=== PATIENT | female | born 1985 ===

== ENCOUNTER 2016-09-02 18:16 | Emergency (ER) | payer SELFPAY ==
[2016-09-02 18:22] VITALS: BP 114/61; PULSE 63; RESP 18; TEMP 98.2; O2SAT 100
[2016-09-02] MEDS ORDERED: Lactated Ringer's 1,000 ML IV STA (18:41)
[2016-09-02] MEDS ORDERED: Dextrose 5%/Lactated Ringer's 1,000 ML IV SCH (18:45)
[2016-09-02 19:00] LABS: BASO % 0.5 % (0.0-2.0); EOS # 0.1 K/uL (0.0-0.7); EOS % 0.6 % (0.0-4.0); HEMOGLOBIN 12.1 g/dL (12.0-16.0); LYMPH # 2.4 K/uL (1.0-4.3); LYMPH % 25.5 % (20.0-40.0); MEAN CELL VOLUME 81.2 fl (81.0-99.0); MEAN CORPUSCULAR HEMOGLOBIN 26.3 pg (27.0-31.0); MEAN CORPUSCULAR HGB CONC 32.4 g/dL (33.0-37.0); MEAN PLATELET VOLUME 8.4 fl (7.2-11.7); MONO # 0.5 K/uL (0.0-0.8); MONO % 5.3 % (0.0-10.0); NEUT # 6.3 K/uL (1.8-7.0); NEUT % 68.1 % (50.0-75.0); NRBC % 0.1 % (0.0-0.0); RBC 4.6 Mil/uL (3.80-5.20); RED CELL DISTRIBUTION WIDTH 17.7 % (11.5-14.5); WHITE BLOOD COUNT 9.3 K/uL (4.8-10.8)
[2016-09-02 19:21] LABS: ALB/GLOB RATIO 1.1 (1.0-2.1); ALBUMIN 3.9 g/dL (3.5-5.0); ALT/SGPT 28 U/L (9-52); AST/SGOT 21 U/L (14-36); BLOOD UREA NITROGEN 9 mg/dl (7-17); CALCIUM 8.7 mg/dL (8.4-10.2); GFR AFRICAN-AMERICAN > 60; GFR NON-AFRICAN AMERICAN > 60; LIPASE 26 U/L (23-300); MAGNESIUM 1.9 MG/DL (1.6-2.3)
--- NOTE | 2016-09-02 19:58 | ED PDOC ---
HPI: Abdomen Time Seen by Provider: 09/02/16 18:25 Chief Complaint (Nursing): GI Problem Chief Complaint (Provider): Intractible vomiting History Per: Patient History/Exam Limitations: no limitations Onset/Duration Of Symptoms: Days Outside of [place] travel?: No Current Symptoms Are (Timing): Still Present Associated Symptoms: Nausea, Vomiting Additional Complaint(s): The pt is a 30yo female, at 11 weeks, reports to the ED for evaluation of intractible vomiting present for the past day. Pt reports shes had multiple episodes of vomiting every day since finding out she was . States she took zofran today with no relief. Pt has visited medical center last week with similar complaints, was treated and released. She reports some mild crampy abdominal pain, intermittent and associated with vaginal spotting for 2x weeks. She reports following up with her OBGYN for this issue. She reports some constipation but denies any black or bloody stools, hematemesis. Pt also reports some light headedness, fatigue. Offers no additional medical complaints. PCP: Dr. Cardona Abnormal Vaginal Bleeding: No : 4 Para: 3 Past Medical History Reviewed: Historical Data, Nursing Documentation, Vital Signs Vital Signs: Last Vital Signs Temp 98.2 F 09/02/16 18:19 Pulse 63 09/02/16 18:19 Resp 18 09/02/16 18:19 BP 114/61 09/02/16 18:19 Pulse Ox 100 09/02/16 20:07 - Medical History PMH: No Chronic Diseases - Surgical History Surgical History: (3) - Family History Family History: States: Other Other Family History: mother w/ liver and kidney disease - Social History Current smoker - smoking cessation education provided: No Alcohol: None Drugs: Denies - Home Medications Home Medications: Ambulatory Orders Medication Instructions Recorded Famotidine [Pepcid] 40 mg PO DAILY PRN #30 tab 09/02/16 Metoclopramide [Reglan] 1 tab PO TID PRN #15 tab 09/02/16 - Allergies Allergies/Adverse Reactions: Allergies Allergy/AdvReac Type Severity Reaction Status Date / Time Penicillins Allergy RASH Verified 09/02/16 18:19 Review of Systems ROS Statement: Except As Marked, All Systems Reviewed And Found Negative Constitutional: Positive for: Other (fatigue) Cardiovascular: Positive for: Light Headedness Gastrointestinal: Positive for: Nausea, Vomiting, Constipation. Negative for: Melena, Hematochezia, Hematemesis Physical Exam - Reviewed Nursing Documentation Reviewed: Yes Vital Signs Reviewed: Yes - Physical Exam Appears: Positive for: Non-toxic, Uncomfortable (mild gastrointestinal distress) . Negative for: Well (tired appearing, obese) Head Exam: Positive for: ATRAUMATIC, NORMAL INSPECTION, NORMOCEPHALIC Skin: Positive for: Normal Color, Warm, DRY Eye Exam: Positive for: EOMI, PERRL, Other (sunken orbits) ENT: Positive for: Pharynx Is (normal, tacky mucus membranes) Neck: Positive for: Normal, Supple Cardiovascular/Chest: Positive for: Regular Rate, Rhythm Respiratory: Positive for: Normal Breath Sounds. Negative for: Respiratory Distress Gastrointestinal/Abdominal: Positive for: Normal Exam, Soft. Negative for: Tenderness Neurologic/Psych: Positive for: Alert, Oriented - Laboratory Results Result Diagrams: 09/02/16 18:51 09/02/16 18:51 - ECG O2 Sat by Pulse Oximetry: 100 (RA) Pulse Ox Interpretation: Normal Medical Decision Making Medical Decision Making: Time: 1837 Impression: Hyperemesis gravidarum Differential: Electrolyte abnormality, dehydration, anemia, gastritis Plan: -- Pepcid -- Lactated Ringer's -- Reglan Reassess EXAM: US , Transvaginal CLINICAL HISTORY: 30 years old, female; Pain; complicated by abdominal or pelvic pain; Lower; First trimester; Gestational age or lmp: 11weeks 1 day; ; Additional info: Pelvic pain preg TECHNIQUE: Real-time transvaginal obstetrical ultrasound of the maternal pelvis and a first trimester with image documentation. Transvaginal imaging was used for better evaluation of the fetus and adnexa. COMPARISON: No relevant prior studies available. FINDINGS: Gestation: Single live intrauterine gestation. heart rate of 161 beats per minute. [place]-rump length of 4.66 cm, correlating with gestational age of 11 weeks 3 days. Uterus/cervix: No subchorionic hemorrhage. No cervical dilatation or effacement. Nabothian cysts. Ovaries: Not visualized. No adnexal masses. Free fluid: No significant free fluid. IMPRESSION: 1. Single live intrauterine gestation. 2. Incidental/non-acute findings are described above. Thank you for allowing us to participate in the care of your patient. Dictated and Authenticated by: Saji Dean MD 09/02/2016 11:20 PM Eastern Time ([place] & [place]) Pt feels better. Eager to go home. Tolerated PO in ER. Scribe Attestation: Documented by Hiwot Charlton acting as a scribe for Anushka Baxter MD. Provider Attestation: All medical record entries made by the Scribe were at my direction and personally dictated by me. I have reviewed the chart and agree that the record accurately reflects my personal performance of the history, physical exam, medical decision making, and the department course for this patient. I have also personally directed, reviewed, and agree with the discharge instructions and disposition. Disposition - Clinical Impression Clinical Impression: Hyperemesis gravidarum - Disposition Referrals: Saleem Leblanc MD [Staff Provider] - 09/04/16 Disposition: Routine/Home Disposition Time: 23:00 Condition: IMPROVED Prescriptions: Famotidine [Pepcid] 40 mg PO DAILY PRN #30 tab PRN Reason: reflux Metoclopramide [Reglan] 1 tab PO TID PRN #15 tab PRN Reason: Nausea/Vomiting Instructions: Hyperemesis Gravidarum (ED)
--- NOTE | 2016-09-02 23:20 | US ---
EXAM: US , Transvaginal CLINICAL HISTORY: 30 years old, female; Pain; complicated by abdominal or pelvic pain; Lower; First trimester; Gestational age or lmp: 11weeks 1 day; ; Additional info: Pelvic pain preg TECHNIQUE: Real-time transvaginal obstetrical ultrasound of the maternal pelvis and a first trimester with image documentation. Transvaginal imaging was used for better evaluation of the fetus and adnexa. COMPARISON: No relevant prior studies available. FINDINGS: Gestation: Single live intrauterine gestation. heart rate of 161 beats per minute. [place]-rump length of 4.66 cm, correlating with gestational age of 11 weeks 3 days. Uterus/cervix: No subchorionic hemorrhage. No cervical dilatation or effacement. Nabothian cysts. Ovaries: Not visualized. No adnexal masses. Free fluid: No significant free fluid. IMPRESSION: 1. Single live intrauterine gestation. 2. Incidental/non-acute findings are described above.
== END 2016-09-02 23:47 | disposition home or self-care (01) ==
LOC: H.ER 18:16
DX: O21.0 Mild hyperemesis gravidarum (principal); O26.891 Other specified pregnancy related conditions, first trimester; Z88.0 Allergy status to penicillin
CPT/HCPCS: 76817; 80053; 81025; 83690; 83735; 84100; 85025; 96361; 96374; 96375; 99284; J2765; J7120